=== PATIENT | male | born 1995 | race Caucasian/White ===

== ENCOUNTER 2017-01-27 03:46 | Emergency (ER) | payer OTHER ==
[~2017-01-27] VITALS: Ht 172.7 cm; Wt 67.3 kg
[2017-01-27 03:53] VITALS: TEMP 36.6; Ht 172.7 cm; Wt 67.3 kg
--- NOTE | 2017-01-27 04:05 | EMERGENCY ROOM VISIT NOTE ---
History Report prepared by Scribe: Barbara Rollins Under the Supervision of: Dr. Brant Cat D.O. First contact with patient: 03:49 Chief Complaint: ALCOHOL OVERDOSE Stated Complaint: ETOH History of Present Illness The patient is a 21 year old male who presents to the Emergency Room with complaints of an alcohol overdose. He was brought to the ED via EMS. Nursing staff reports the patient was found drunk in a girls shower in the dorms. The patient denies hitting his head, losing consciousness or any traumatic injuries. Additional information is unable to be obtained secondary to the patients intoxication. Source of History: patient, EMS History Limited By: intoxication Onset: [employer]ATOR Position: other (global) Timing: constant Associated Symptoms: No LOC Review of Systems See HPI for pertinent positives and negatives. A limited number of systems were reviewed and were otherwise negative. Past Medical & Surgical Medical Problems: (1) No significant past medical history Social History Alcohol Use: occasionally Drug Use: none Marital Status: in relationship Housing Status: lives with roommate Occupation Status: [employer] student Physical Exam Vital Signs Date Time Temp Pulse Resp B/P (MAP) Pulse Ox O2 Delivery O2 Flow Rate FiO2 01/27/17 03:55 76 01/27/17 03:53 96 Room Air 01/27/17 03:53 96 Room Air 01/27/17 03:53 36.6 75 16 119/80 97 Room Air Physical Exam GENERAL: Awake, alert, well-appearing, in no distress HENT: Normocephalic, atraumatic. Oropharynx unremarkable. EYES: Normal conjunctiva. Sclera non-icteric. NECK: Supple. No nuchal rigidity. FROM. No JVD. RESPIRATORY: Clear to auscultation. CARDIAC: Regular rate, normal rhythm. Extremities warm and well perfused. Pulses equal. ABDOMEN: Soft, non-distended. No tenderness to palpation. No rebound or guarding. No masses. RECTAL: Deferred. MUSCULOSKELETAL: No signs of trauma. Chest examination reveals no tenderness. The back is symmetrical on inspection without obvious abnormality. There is no CVA tenderness to palpation. No joint edema. LOWER EXTREMITIES: No signs of trauma. Calves are equal size bilaterally and non -tender. No edema. No discoloration. NEURO: Normal sensorium. No sensory or motor deficits noted. SKIN: No rash or jaundice noted. Medical Decision & Procedures Laboratory Results 01/27/17 03:54 Test 01/27/17 03:54 Anion Gap 8.0 mmol/L (3-11) Est Creatinine Clear Calc Drug Dose 146.9 ml/min Estimated GFR () > 150.0 Estimated GFR (Non- 131.6 BUN/Creatinine Ratio 15.7 (10-20) Calcium Level 8.1 mg/dl (8.5-10.1) Ethyl Alcohol mg/dL 212.0 mg/dl (0-3) Laboratory results reviewed by me ED Course 0356: The patient was evaluated in room B5. A complete history and physical exam was performed. 0515: I reevaluated the patient. He is resting comfortably. I discussed his discharge instructions and he verbalized complete understanding and agreement. Medical Decision The differential diagnoses considered include alcohol intoxication, toxicologic , infection, hypoglycemia, electrolyte abnormalities, cardiac sources, intracerebral event, neurologic, as well as others were entertained. Patient resting in no distress throughout emergency department evaluation. There are no signs of trauma. Patient is nonfocal and by 15 a.m. Patient will be observed and when has a sober ride will be able to be discharged Medication Reconcilliation Current Medication List: was personally reviewed by me Blood Pressure Screening Patient's blood pressure: Normal blood pressure Blood pressure disposition: Did not require urgent referral Impression Primary Impression: Alcohol intoxication Scribe Attestation The scribe's documentation has been prepared under my direction and personally reviewed by me in its entirety. I confirm that the note above accurately reflects all work, treatment, procedures, and medical decision making performed by me. Departure Information Dispostion Home / Self-Care Patient Instructions Alcohol Intoxication - [facility], My [facility], [place] Emergency Department: [employer] Students and Alcohol Related Visits Additional Instructions Avoid alcohol, follow-up primary care physician, return for any concerns
[2017-01-27 04:21] LABS: BLOOD UREA NITROGEN 12 mg/dl (7-18); BUN/CREATININE RATIO 15.7 (10-20); CALCIUM 8.1 mg/dl (8.5-10.1); CARBON DIOXIDE 26 mmol/L (21-32); CHLORIDE 103 mmol/L (98-107); CREATININE 0.77 mg/dl (0.60-1.40); GLUCOSE 97 mg/dl (70-99); POTASSIUM 3.6 mmol/L (3.5-5.1); SODIUM 137 mmol/L (136-145)
[2017-01-27] MEDS ORDERED: METH5TAB4 PO (05:21)
[2017-01-27 05:31] VITALS: O2SAT 99
[2017-01-27 06:03] VITALS: BP 119/80; PULSE 85; O2SAT 98
== END 2017-01-27 06:00 | disposition home or self-care (01) ==
LOC: EDBD 03:46 → C.EDB 03:48
DX: F10.129 Alcohol abuse with intoxication, unspecified (principal)